=== PATIENT | male | born 1965 | race Caucasian/White ===

== ENCOUNTER 2016-08-02 09:08 | Outpatient (CLI) | payer OTHER ==
[~2016-08-02] VITALS: Ht 188 cm; Wt 125.0 kg
[~2016-08-02 09:08] MED LIST: ABILIFY20 MG; AMBIEN CR 12.12.5 MG; ASPIRIN 81M81 MG/TA2; COLACE 100100 MG/CAP PO; CYMBALTA 60MG60 MG PO; KLONOPIN 0.5MG0.5 MG PO; LIPITOR 40MG TA40 MG PO; LIPITOR 80MG80 MG PO; LYRICA200 MG; MELATONIN5 M1 SL; MINIPRESS2 MG; MOBIC15 MG PO; NEURONTIN600 MG/TAB PO; NEXIUM 40MG40 MG PO; NITROSTAT0.4 MG/TAB SL; NUCYNTA100 MG; PRINIVIL10 MG; ROBAXIN 50500 MG/TAB PO; ROXICODONE30 MG PO; SUBOXONE 2 MG-01 TAB SL; VESICARE10 MG PO; VIAGRA100 M1; ZESTRIL 20MG TA20 MG PO; ZOFRAN8 MG; ZOLOFT 50MG50 MG
[2016-08-02 09:32] VITALS: BP 111/80; PULSE 71
[2016-08-02 11:45] VITALS: BP 110/70; PULSE 70
[2016-08-02 11:50] VITALS: BP 134/76; PULSE 66
[2016-08-02 12:10] VITALS: BP 126/90; PULSE 101
[2016-08-02 12:25] VITALS: BP 120/73; PULSE 61
[2016-08-02 13:13] VITALS: BP 109/87; PULSE 65
== END 2016-08-02 13:13 | disposition home or self-care (01) ==
LOC: COL.RAD 09:08
DX: M50.31 Other cervical disc degeneration, high cervical region (principal); M51.25 Other intervertebral disc displacement, thoracolumbar region; M51.36 Other intervertebral disc degeneration, lumbar region; Z98.1 Arthrodesis status; G57.93 Unspecified mononeuropathy of bilateral lower limbs; M54.41 Lumbago with sciatica, right side; M54.42 Lumbago with sciatica, left side
CPT/HCPCS: Q9965

== ENCOUNTER 2016-09-22 11:07 | Emergency (ER) | payer OTHER ==
[~2016-09-22] VITALS: Ht 188 cm; Wt 122.7 kg
[2016-09-22 11:08] VITALS: TEMP 97.5
[2016-09-22 11:41] LABS: BASO # 0.1 (0.0-0.2); BASO % 0.7 % (0.0-2.0); EOS # 0.2 (0.0-0.7); GRAN # 3.5 (1.4-6.5); GRAN % 47.4 % (42.2-75.2); HEMATOCRIT 46.1 % (42.0-52.0); HEMOGLOBIN 14.9 g/dl (13.5-18.0); LYMPH % 40.2 % (20.0-51.0); MEAN CELL VOLUME 81 fl (80.0-100.0); MEAN CORPUSCULAR HEMOGLOBIN 26 pg (27.0-31.0); MEAN CORPUSCULAR HGB CONC 32 g/dl (33.0-37.0); MEAN PLATELET VOLUME 9.6 fl (7.4-10.4); MONO # 0.7 (0.1-0.6); MONO % 9.4 % (1.7-9.3); PLATELET COUNT 226 K/mm3 (130-400); RED BLOOD COUNT 5.71 M/mm3 (4.20-5.60); REDCELL DISTRIBUTION WIDTH-CV 13.3 % (11.5-14.5); WHITE BLOOD COUNT 7.4 K/mm3 (4.8-10.8)
[2016-09-22 11:42] LABS: ADJUSTED CALCIUM 9.3 mg/dL (8.4-10.2); ALBUMIN 4.7 gm/dL (3.5-5.0); BILIRUBIN,TOTAL 1.1 mg/dL (0.0-1.0); CALCIUM 9.9 mg/dL (8.4-10.2); CREATININE, serum 0.85 mg/dL (0.66-1.25); POTASSIUM 4.8 mmol/L (3.4-5.0); TOTAL PROTEIN 7.7 gm/dL (6.4-8.2)
[2016-09-22 11:43] LABS: C-REACTIVE PROTEIN 0.5 mg/dL (0.0-0.9)
[2016-09-22 12:45] LABS: PH 8 (5-8); SQUAMOUS EPITHELIAL None Seen /hpf; URINE APPEARANCE Clear; URINE BACTERIA None Seen /hpf; URINE BILIRUBIN Negative (NEGATIVE); URINE BLOOD Negative (NEGATIVE); URINE COLOR Yellow; URINE GLUCOSE Negative (NEGATIVE); URINE KETONE Negative (NEGATIVE); URINE RBC 0-2 /hpf; URINE UROBILINOGEN Negative (NEGATIVE); URINE WBC 0-2 /hpf
[2016-09-22 15:25] VITALS: BP 148/78; PULSE 78
== END 2016-09-22 15:28 | disposition home or self-care (01) ==
LOC: COL.ER 11:07
PROVIDERS: Physician Assistant
DX: R10.32 Left lower quadrant pain (principal); N50.812 Left testicular pain; G89.29 Other chronic pain; N50.3 Cyst of epididymis
CPT/HCPCS: J1885; J2060; J7030

== ENCOUNTER 2016-11-08 14:30 | Outpatient (RCR) | payer OTHER | END 2016-12-06 | disposition home or self-care (01) | LOC: WSPT | DX: M54.5 Low back pain (principal) | CPT/HCPCS: G8978-GP; G8979-GP ==

== ENCOUNTER 2017-06-20 13:42 | Emergency (ER) | payer OTHER ==
[~2017-06-20] VITALS: Ht 188 cm; Wt 122.3 kg
[2017-06-20 13:45] VITALS: TEMP 99.4
[2017-06-20 14:20] LABS: BASO % 0.2 % (0.0-2.0); EOS % 0.8 % (0-4.0); GRAN # 3.7 (1.4-6.5); GRAN % 76.9 % (42.2-75.2); HEMATOCRIT 45.5 % (42.0-52.0); HEMOGLOBIN 14.4 g/dl (13.5-18.0); LYMPH # 0.6 (1.2-3.4); LYMPH % 12.1 % (20.0-51.0); MEAN CELL VOLUME 81 fl (80.0-100.0); MEAN CORPUSCULAR HEMOGLOBIN 26 pg (27.0-31.0); MEAN CORPUSCULAR HGB CONC 32 g/dl (33.0-37.0); MEAN PLATELET VOLUME 9.5 fl (7.4-10.4); MONO # 0.5 (0.1-0.6); MONO % 9.6 % (1.7-9.3); PLATELET COUNT 155 K/mm3 (130-400); RED BLOOD COUNT 5.59 M/mm3 (4.20-5.60); REDCELL DISTRIBUTION WIDTH-CV 13.3 % (11.5-14.5)
[2017-06-20 14:26] LABS: ALBUMIN 4.8 gm/dL (3.5-5.0); BILIRUBIN,TOTAL 0.8 mg/dL (0.0-1.0); CALCIUM 9.5 mg/dL (8.4-10.2); CREATININE, serum 0.9 mg/dL (0.66-1.25); POTASSIUM 4.8 mmol/L (3.4-5.0); TOTAL PROTEIN 7.9 gm/dL (6.4-8.2)
[2017-06-20 14:43] LABS: INFLUENZA A NEGATIVE; INFLUENZA B NEGATIVE
[2017-06-20 16:05] LABS: COLLECTION METHOD CLEAN CATCH
[2017-06-20 16:23] LABS: PH 8 (5-8); SQUAMOUS EPITHELIAL 0-2 /hpf; URINE APPEARANCE Clear; URINE BACTERIA Rare /hpf; URINE BILIRUBIN Negative (NEGATIVE); URINE BLOOD Negative (NEGATIVE); URINE COLOR Yellow; URINE GLUCOSE Negative (NEGATIVE); URINE KETONE Negative (NEGATIVE); URINE LEUKOCYTE ESTERASE Negative (NEGATIVE); URINE NITRATE Negative (NEGATIVE); URINE PROTEIN(semi-quant) 1+ (NEGATIVE); URINE RBC 0-2 /hpf; URINE UROBILINOGEN Negative (NEGATIVE)
[2017-06-20] MEDS ORDERED: TAMIFLU 75MG75 MG PO (16:49)
[2017-06-20 17:55] VITALS: BP 124/74; PULSE 83
== END 2017-06-20 18:00 | disposition home or self-care (01) ==
LOC: COL.ER 13:42
PROVIDERS: Emergency Medicine
DX: J11.1 Influenza due to unidentified influenza virus with other respiratory manifestations (principal); Z88.7 Allergy status to serum and vaccine
CPT/HCPCS: J1170; J1885; J7030

== ENCOUNTER 2017-10-25 08:30 | Outpatient (RCR) | payer OTHER ==
[~2017-10-25 08:30] MED LIST changes: +TAMIFLU 75MG75 MG PO
== END 2017-11-19 08:59 | disposition home or self-care (01) ==
LOC: WSPT 08:30
DX: M79.672 Pain in left foot (principal); M79.671 Pain in right foot; F17.210 Nicotine dependence, cigarettes, uncomplicated

== ENCOUNTER 2018-03-26 10:45 | Outpatient (RCR) | payer OTHER ==
[~2018-03-26 10:45] MED LIST changes: +ANTIVERT 25MG25 MG PO; +BUPRENORPHINE HY2 MG SL; +BUTRANS15 MCG/HR TD; +CYMBALTA 30MG30 MG PO; +GLUCOPHAGE XR500 M1 PO; +GLUCOPHAGE500 MG/TAB PO; +LIORESAL 1010 MG/TAB PO; +LIORESAL20 MG PO; +LIPITOR20 MG PO; +MINIPRESS 1M1 MG/CAP PO; +MYRBETR50MG PO; +NEURONTIN300 MG/CAP PO; +PRINIVIL20 MG PO; +PROTONIX20 MG PO; +SPRIX15.75 MG/A NAS; +SPRIX15.75 MG/A NS; +VOLTAREN GEL 1%1 TU TP; +ZOFRAN8 MG PO; +ZYRTEC 10MG10 MG PO
== END 2018-03-27 | disposition home or self-care (01) ==
LOC: WSPT
DX: S24.109D Unspecified injury at unspecified level of thoracic spinal cord, subsequent encounter (principal)
CPT/HCPCS: G8978-GP; G8979-GP

== ENCOUNTER 2019-07-30 12:45 | Outpatient (RCR) | payer OTHER | END 2019-10-06 | disposition home or self-care (01) | LOC: WSPT | DX: G95.89 Other specified diseases of spinal cord (principal) ==

== ENCOUNTER 2020-06-29 16:59 | Emergency (ER) | payer MEDICARE ==
[~2020-06-29] VITALS: Ht 188 cm; Wt 108.6 kg
[2020-06-29 17:24] VITALS: BP 164/86; TEMP 98.6
[2020-06-29 18:19] VITALS: PULSE 85
== END 2020-06-29 18:23 | disposition home or self-care (01) ==
LOC: COL.ER 16:59
DX: S61.212A Laceration without foreign body of right middle finger without damage to nail, initial encounter (principal); Z90.49 Acquired absence of other specified parts of digestive tract; Z87.891 Personal history of nicotine dependence; Z79.84 Long term (current) use of oral hypoglycemic drugs; W26.0XXA Contact with knife, initial encounter

== ENCOUNTER 2020-10-13 10:15 | Outpatient (RCR) | payer OTHER | END 2020-11-15 | disposition home or self-care (01) | LOC: PT.GENESIS | DX: M48.062 Spinal stenosis, lumbar region with neurogenic claudication (principal); M51.36 Other intervertebral disc degeneration, lumbar region ==

== ENCOUNTER 2021-05-04 15:00 | Outpatient (RCR) | payer OTHER | END 2021-05-20 | disposition home or self-care (01) | LOC: WSPT | DX: M25.559 Pain in unspecified hip (principal) ==

== ENCOUNTER 2022-02-15 22:58 | Emergency (ER) | payer MEDICARE, OTHER ==
[~2022-02-15] VITALS: Ht 185.4 cm; Wt 104.5 kg
[~2022-02-15 22:58] MED LIST changes: +PERCOCET 325 MG1 TA2 PO
[2022-02-15 23:21] VITALS: TEMP 97.8
[2022-02-16 00:24] VITALS: BP 130/81; PULSE 80
== END 2022-02-16 00:25 | disposition home or self-care (01) ==
LOC: COL.ER 22:58
DX: K08.89 Other specified disorders of teeth and supporting structures (principal)
CPT/HCPCS: J1885

== ENCOUNTER → 2024-02-25 | Outpatient (CLI) | payer OTHER | LOC: COL.RAD 14:36 | DX: Z01.89 Encounter for other specified special examinations (principal); M47.812 Spondylosis without myelopathy or radiculopathy, cervical region; M25.78 Osteophyte, vertebrae; M48.02 Spinal stenosis, cervical region; M47.814 Spondylosis without myelopathy or radiculopathy, thoracic region; G95.20 Unspecified cord compression ==